=== PATIENT | female | born 2000 | race Caucasian/White ===

== ENCOUNTER 2019-06-28 15:37 | Emergency (ER) | payer MEDICAID ==
[~2019-06-28] VITALS: Ht 162.6 cm; Wt 79.4 kg
[~2019-06-28 15:37] MED LIST: CEF250 PO; COL100 PO; IRON; LAC PO; NORCO1 TA2 PO; PRENATAL VITAMI1 TA1; ZOF4 PO
[2019-06-28 15:40] VITALS: Ht 162.6 cm; Wt 79.4 kg
[2019-06-28 17:32] VITALS: BP 114/70
== END 2019-06-28 17:32 | disposition home or self-care (01) ==
LOC: ED 15:37
DX: J03.90 Acute tonsillitis, unspecified (principal); R51 Headache; Z87.19 Personal history of other diseases of the digestive system